=== PATIENT | female | born 1945 | race Caucasian/White ===

== ENCOUNTER 2018-11-03 09:28 | Outpatient (CLI) | payer MEDICARE, OTHER ==
--- NOTE | 2018-11-03 18:00 | Consultation ---
DATE OF CONSULTATION: 11/03/2018 GASTROENTEROLOGY CONSULTATION CONSULTING PHYSICIAN: Manny Smith M.D. CHIEF COMPLAINT: Referral for screening colonoscopy. HISTORY OF PRESENT ILLNESS: This is a 73-year-old patient known to me. Last colonoscopy was in 2007. It was done at [facility]. At that time, the patient had evidence of antral gastritis and also hemorrhoids. The patient was recommended to get another colonoscopy. She was recommended to get another colonoscopy in 10 years. She also had family history of colon cancer at young age. Actually from the time that she has not been here for last 10 years, she was in [place]. According to her, she fell and she basically passed out. She was in the hospital for three months and they never figured out what was wrong with her. At this time, she does not have any major GI symptoms. PAST MEDICAL HISTORY: Gastritis and history of syncope. PAST SURGICAL HISTORY: None. MEDICATIONS: Please see medication reconciliation list. FAMILY HISTORY: Her sister was diagnosed with colon cancer at young age. SOCIAL HISTORY: The patient denies any tobacco, alcohol, or drug abuse. ALLERGIES: No known allergies. REVIEW OF SYSTEMS: A 10-point review of systems was performed and pertinent positives in HPI. PHYSICAL EXAMINATION: GENERAL: This is a well-developed female, in no acute distress. HEENT: Normocephalic and atraumatic. Sclerae anicteric. NECK: Supple. No evidence of obvious lymphadenopathy. CARDIOVASCULAR: Regular rate and rhythm. Plus S1 and S2. No obvious murmur. LUNGS: Clear to auscultation bilaterally. ABDOMEN: Positive bowel sounds. Soft and nontender. No rebound. No guarding. No peritoneal sign. EXTREMITIES: No cyanosis, no clubbing, no edema. ASSESSMENT AND PLAN: This is a 73-year-old female with past medical history of H. pylori-negative gastritis and family history of colon cancer. Last colonoscopy was 10 years ago and needs screening colonoscopy. Plan to schedule at [facility] per the patient's request. The patient was given instruction and information and diet for colonoscopy. Risks and benefits of procedure was explained to her and she agreed, so we will schedule her. Manny Smith M.D. DR: TIM JOB#: [id number] CC:
== END 2018-11-03 11:28 | disposition home or self-care (01) ==
LOC: PAN 09:28
DX: K29.70 Gastritis, unspecified, without bleeding (principal); Z80.0 Family history of malignant neoplasm of digestive organs